=== PATIENT | female | born 2000 | race Hispanic/Latino ===

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

== ENCOUNTER 2020-02-27 09:43 | Outpatient (CLI) | payer OTHER ==
--- NOTE | 2020-02-27 11:13 | ULT ---
OB ULTRASOUND: Date: 02/27/2020 HISTORY: anatomy. FINDINGS: A single, live intrauterine gestation is seen, with measurements corresponding to an estimated gestat ional age of 20 weeks and 3 days, and MICK at 07/13/2020. The estimated weight measures 345 gm, or 12 oz. (38% by Hadlock criteria). Biometry: BPD: 4.81 cm, 20 weeks/4 days HC: 17.61 cm, 20 weeks/1 day AC: 15.32 cm, 20 weeks/4 days FL: 3.23 cm, 20 weeks/1 day heart rate measures 140 beats/minute. Placenta is anteriorly located without evidence of placental previa. FREEDOM measures 13.8 cm. Cervical length measures 3.0 cm. A 3 vessel cord, cord insertion, kidneys, bladder, stomach, 4 chamber heart, lateral ventricles , cerebellum, bladder, spine, lips/nose, and upper/lower extremities are visualized. No definite feta l anomalies are seen. IMPRESSION: Single, live intrauterine of 20 weeks and 3 days estimated gestational age, and MICK at 09/2019. POS: [facility]
== END 2020-02-27 09:44 | disposition home or self-care (01) ==
LOC: BICULT 09:43
PROVIDERS: ATTEND Family Medicine
DX: Z34.82 Encounter for supervision of other normal pregnancy, second trimester (principal); Z3A.20 20 weeks gestation of pregnancy
CPT/HCPCS: 76805

== ENCOUNTER 2020-06-13 15:53 | Emergency (ER) | payer OTHER ==
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
== END 2020-06-13 18:08 | disposition home or self-care (01) ==
LOC: ERS 15:53
DX: M54.6 Pain in thoracic spine (principal); M25.511 Pain in right shoulder; V89.2XXA Person injured in unspecified motor-vehicle accident, traffic, initial encounter
CPT/HCPCS: 72072

== ENCOUNTER 2020-07-10 08:44 | Outpatient (CLI) | payer OTHER ==
[2020-07-10 18:20] LABS: SARS-CoV-2 MS2 Positive; SARS-CoV-2 N Gene Negative; SARS-CoV-2 S Gene Negative; SARS-CoV-2 by NAA Not Detected (NotDetected); SARS-CoV-2 orf1ab Negative
== END 2020-07-10 08:45 | disposition home or self-care (01) ==
LOC: LABBT 08:44
PROVIDERS: ATTEND Family Medicine
DX: Z20.828 Contact with and (suspected) exposure to other viral communicable diseases (principal)
CPT/HCPCS: 87635; U0003

== ENCOUNTER 2020-07-13 19:15 | Inpatient (IN) | payer OTHER ==
[2020-07-13 20:24] VITALS: BMI 32.1
[2020-07-13] MEDS ORDERED: Lidocaine 1% (PF) 30 ML VIAL SC PRN (20:32)
[2020-07-13] MEDS ORDERED: NS / Oxytocin 40 units/1000ml 1,000 ML IV PRN (20:32)
[2020-07-13] MEDS ORDERED: Carboprost 250 MCG/ML AMP IM PRN (20:32)
[2020-07-13] MEDS ORDERED: HYDROcodone/Acetaminophen 5/325 mg Tablet PO PRN (20:32)
[2020-07-13] MEDS ORDERED: Ibuprofen 800 MG TAB PO PRN (20:32)
[2020-07-13] MEDS ORDERED: Misoprostol 200 MCG TAB PR PRN (20:32)
[2020-07-13] MEDS ORDERED: Diphenoxylate HCl/Atropine Tablet PO PRN (20:32)
[2020-07-13] MEDS ORDERED: Ondansetron PF 4 MG/2 ML Vial IVP PRN (20:32)
[2020-07-13] MEDS ORDERED: Promethazine HCl 25 MG/ML VIAL IM PRN (20:32)
[2020-07-13] MEDS ORDERED: Methylergonovine 0.2 MG/ML VIAL IM PRN (20:32)
[2020-07-13] MEDS ORDERED: hydrALAZINE 20 MG/ML VIAL SLOW IVP PRN (20:32)
[2020-07-13] MEDS ORDERED: NS w/ Oxytocin 10 units 500 ML IV SCH (20:45)
[2020-07-13] MEDS ORDERED: Penicillin G Potassium 5 MILL.UNITS in Sodium Chloride 0.9% 100 ML IVPB SCH (20:45)
[2020-07-13] MEDS: Lactated Ringer's 1,000 ML IV SCH (21:00)
[2020-07-13 21:12] LABS: Hemoglobin 12.1 g/dL (12.0-16.0); Mean Corpuscular HGB CONC 34.3 g/dL (32.0-36.0); Mean Corpuscular Hemoglobin 30.4 pg (25.0-35.0); Mean Corpuscular Volume 88.8 fL (78.0-98.0); Mean Platelet Volume 8.6 fL (7.4-10.4); Platelet Count 229 thou/uL (130-400); RBC Distribution Width 12.3 % (11.5-14.5); Red Blood Cell (RBC) Count 3.96 mill/uL (4.00-5.20); White Blood Cell (WBC) Count 8.2 thou/uL (4.8-10.8)
[2020-07-13 21:37] LABS: Syphilis Antibody Nonreactive (Nonreactive); Syphilis Antibody Index 0.03 S/CO (<1.00 Non-Reactive)
[2020-07-13 22:49] LABS: HBSAg Index 0.12 S/CO (0-0.99); Hep B Surf Ag Non-Reactive S/CO (NonReactive)
[2020-07-14] MEDS ORDERED: Penicillin G Potassium 5 MILL.UNITS VIAL ONE (00:05)
[2020-07-14] MEDS: Lactated Ringer's 1,000 ML IV SCH ×2 (04:05→18:55)
[2020-07-14] MEDS: NS w/ Oxytocin 10 units 500 ML IV SCH ×2 (04:05→18:55)
[2020-07-14] MEDS: Penicillin G 2.5 MILL.units 2.5 MILL.UNITS in Premix Bag 1 BAG IVPB SCH ×4 (04:05→18:57)
[2020-07-14] MEDS: Butorphanol Tartrate 1 MG/ML VIAL SLOW IVP PRN ×2 (09:28→10:52)
[2020-07-14] MEDS: Misoprostol 100 MCG TAB VAG SCH ×2 (11:08→11:09)
[2020-07-14] MEDS ORDERED: Lidocaine 1% (PF) 30 ML VIAL ONE (12:33)
[2020-07-14] MEDS ORDERED: NS / Oxytocin 40 units/1000ml 1,000 ML ONE ×2 (12:33→13:17)
[2020-07-14] MEDS ORDERED: Carboprost 250 MCG/ML AMP ONE (13:17)
[2020-07-14] MEDS ORDERED: Misoprostol 200 MCG TAB ONE (13:17)
[2020-07-14] MEDS ORDERED: Methylergonovine 0.2 MG/ML VIAL ONE (13:17)
[2020-07-14] MEDS ORDERED: hydrALAZINE 20 MG/ML VIAL SLOW IVP PRN (15:47)
[2020-07-14] MEDS ORDERED: HYDROcodone/Acetaminophen 5/325 mg Tablet PO PRN ×2 (15:47)
[2020-07-14] MEDS ORDERED: Milk Of Magnesia 30 ML UDCUP PO PRN (15:47)
[2020-07-14] MEDS ORDERED: Bisacodyl 10 MG SUPP PR PRN (15:47)
[2020-07-14] MEDS ORDERED: diphenhydrAMINE 25 MG CAP PO PRN (15:47)
[2020-07-14] MEDS ORDERED: Promethazine HCl 25 MG/ML VIAL IM PRN (15:47)
[2020-07-14] MEDS ORDERED: Benzocaine-Menthol 82.5 ML CAN TOP PRN (15:47)
[2020-07-14] MEDS ORDERED: NS / Oxytocin 40 units/1000ml 1,000 ML IV SCH (15:47)
[2020-07-14] MEDS ORDERED: Ondansetron PF 4 MG/2 ML Vial IVP PRN (15:47)
[2020-07-14] MEDS ORDERED: Lanolin Ointment 7 GM TUBE TOP PRN (15:47)
[2020-07-14] MEDS: Ferrous Sulfate 325 MG TAB PO SCH (18:56)
[2020-07-14] MEDS: Docusate Calcium (SURFAK) 240 MG CAP PO SCH (21:52)
[2020-07-14] MEDS: Ibuprofen 800 MG TAB PO SCH (21:52)
[2020-07-15] MEDS: Ibuprofen 800 MG TAB PO SCH ×3 (05:57→21:28)
[2020-07-15 06:30] LABS: Hemoglobin 8.3 g/dL (12.0-16.0); Mean Corpuscular HGB CONC 34.3 g/dL (32.0-36.0); Mean Corpuscular Hemoglobin 30.4 pg (25.0-35.0); Mean Corpuscular Volume 88.5 fL (78.0-98.0); Mean Platelet Volume 8.1 fL (7.4-10.4); Platelet Count 177 thou/uL (130-400); RBC Distribution Width 12.3 % (11.5-14.5); Red Blood Cell (RBC) Count 2.72 mill/uL (4.00-5.20); White Blood Cell (WBC) Count 10.4 thou/uL (4.8-10.8)
[2020-07-15] MEDS: Docusate Calcium (SURFAK) 240 MG CAP PO SCH ×2 (08:15→21:28)
[2020-07-15] MEDS: Prenatal Vitamin 1 TAB PO SCH (08:15)
[2020-07-15] MEDS: Ferrous Sulfate 325 MG TAB PO SCH ×2 (08:16→16:16)
[2020-07-15] MEDS ORDERED: Adacel (T-DAP) 0.5 ML SYRINGE IM ONE (09:00)
[2020-07-15 20:33] VITALS: TEMP 98.2
[2020-07-16] MEDS: Ibuprofen 800 MG TAB PO SCH ×2 (06:05→13:27)
[2020-07-16 07:56] VITALS: BP 112/66
[2020-07-16] MEDS: Ferrous Sulfate 325 MG TAB PO SCH (09:39)
[2020-07-16] MEDS: Prenatal Vitamin 1 TAB PO SCH (09:39)
[2020-07-16] MEDS: Docusate Calcium (SURFAK) 240 MG CAP PO SCH (09:40)
== END 2020-07-16 16:34 | disposition home or self-care (01) | DRG 807 ==
LOC: L&D 19:20 → 3SE 07-14 18:07
PROVIDERS: ADMIT Family Medicine; ATTEND Family Medicine
PROC: 10E0XZZ Delivery of Products of Conception, External Approach (ICD-10-PCS; principal; 2020-07-14)
PROC: 10907ZC Drainage of Amniotic Fluid, Therapeutic from Products of Conception, Via Natural or Artificial Opening (ICD-10-PCS; 2020-07-14)
PROC: 3E033VJ Introduction of Other Hormone into Peripheral Vein, Percutaneous Approach (ICD-10-PCS; 2020-07-14)
DX: O99.824 Streptococcus B carrier state complicating childbirth (principal); Z37.0 Single live birth; O48.0 Post-term pregnancy; Z3A.40 40 weeks gestation of pregnancy
CPT/HCPCS: 36415; 85027; 86780; 86850; 86900; 86901; 87340; J0595; J2210; J2540; J2590; J3490